=== PATIENT | female | born 1950 | race Caucasian/White ===

== ENCOUNTER 2020-09-06 10:11 | Inpatient (IN) ==
[2020-09-06] MEDS ORDERED: GLUCAGON 1 MG VIAL IM PRN ×2 (12:54)
[2020-09-06] MEDS ORDERED: DEXTROSE 50% 25 GM/50 ML VIAL IV PRN ×2 (12:54)
[2020-09-06] MEDS ORDERED: MORPHINE 4 MG/1 ML VIAL IV PRN (13:02)
[2020-09-06] MEDS ORDERED: CLORAZEPATE 3.75 MG TABLET PO PRN (13:02)
[2020-09-06] MEDS ORDERED: NITROGLYCERIN SL 0.4 MG TABLET SL PRN (13:02)
[2020-09-06 15:10] LABS: Basophils # 0.1 10*3/uL (0.0-0.2); Basophils % 0.5 % (0.0-0.8); Eosinophils # 0.5 10*3/uL (0.0-0.87); Eosinophils % 5.7 % (0.00-10.9); Hematocrit 35.2 VOL% (35.7-47.0); Hemoglobin 11.4 GM/DL (12.0-16.0); Immature Granulocytes % 0.4 %; Immature Granulocytes Absolute 0.04 #; Lymphocytes # 1.7 10*3/uL (1.4-4.0); Lymphocytes % 18.1 % (21.3-54.2); Mean Corpuscular HGB Conc 32.4 GM/DL (32-36); Mean Corpuscular Volume 86.9 FL (87-102); Mean Platelet Volume 10.4 FL (9.6-12.0); Monocytes % 7.1 % (1.7-12.7); Neutrophils % 68.2 % (38.7-73.9); Platelet Count 268 T/CUMM (130-400); Red Blood Count 4.05 MC/CUMM (3.8-5.5); Red Cell Distribution Width 13.7 % (9.3-17.3); White Blood Count 9.1 T/CUMM (4-12)
[2020-09-06 15:29] LABS: Albumin 2.7 G/DL (3.4-5.0); Bilirubin,Total 0.4 MG/DL (0.2-1.0); Calcium 8.4 MG/DL (8.5-10.1); Osmolality,Calculated 292.7 MOS/KG (273-304); Total Protein 5.9 G/DL (6.4-8.3)
[2020-09-06] MEDS: INSULIN REGULAR 100 UNIT/ML SUBCUT SCH ×2 (15:50→20:23)
[2020-09-06] MEDS ORDERED: ZALEPLON 5 MG CAPSULE PO PRN (21:17)
[2020-09-06] MEDS: PANTOPRAZOLE 40 MG VIAL IV SCH (21:28)
[2020-09-07] MEDS: INSULIN REGULAR 100 UNIT/ML SUBCUT SCH ×4 (07:51→20:50)
[2020-09-07] MEDS: PANTOPRAZOLE 40 MG VIAL IV SCH (08:02)
[2020-09-08 05:02] LABS: ABG Base Excess -2.9 MMOL/L (-2.5-2.5); ABG Oxygen Saturation 98.6 % (95-100); ABG PCO2 35.5 MM HG (35-48); ABG PH 7.389 (7.35-7.45); ABG TCO2 19.1 MMOL/L (23-27)
[2020-09-08 05:29] LABS: Basophils # 0.1 10*3/uL (0.0-0.2); Basophils % 0.7 % (0.0-0.8); Eosinophils # 0.6 10*3/uL (0.0-0.87); Eosinophils % 8.7 % (0.00-10.9); Hemoglobin 10.7 GM/DL (12.0-16.0); Immature Granulocytes % 0.4 %; Immature Granulocytes Absolute 0.03 #; Lymphocytes # 1.7 10*3/uL (1.4-4.0); Lymphocytes % 22.6 % (21.3-54.2); Mean Corpuscular HGB Conc 32.4 GM/DL (32-36); Mean Corpuscular Volume 85.5 FL (87-102); Mean Platelet Volume 10.2 FL (9.6-12.0); Monocytes % 9.5 % (1.7-12.7); Neutrophils % 58.1 % (38.7-73.9); Platelet Count 244 T/CUMM (130-400); Red Blood Count 3.86 MC/CUMM (3.8-5.5); Red Cell Distribution Width 13.6 % (9.3-17.3); White Blood Count 7.3 T/CUMM (4-12)
[2020-09-08 05:56] LABS: Albumin 2.6 G/DL (3.4-5.0); Bilirubin,Total 1.2 MG/DL (0.2-1.0); Calcium 8.5 MG/DL (8.5-10.1); Osmolality,Calculated 294.5 MOS/KG (273-304); Total Protein 5.8 G/DL (6.4-8.3)
[2020-09-08] MEDS ORDERED: NON-FORMULARY MEDICATION (Famotidine-Ca Carb-Mag Hydrox [Pepcid Complete] 10-800-165 mg Ta PO PRN (07:26)
[2020-09-08] MEDS: INSULIN REGULAR 100 UNIT/ML SUBCUT SCH ×4 (08:49→21:59)
[2020-09-08] MEDS ORDERED: INSULIN GLARGINE 100 UNIT/ML SUBCUT SCH ×2 (09:00→12:00)
[2020-09-08] MEDS: INSULIN NPH/REGULAR 70/30 100 UNIT/ML SUBCUT SCH (09:27)
[2020-09-08] MEDS: ROSUVASTATIN 10 MG TABLET PO SCH (09:30)
[2020-09-08] MEDS: ASPIRIN EC 81 MG TABLET PO SCH (09:30)
[2020-09-08] MEDS: CHLORHEXIDINE 4% SOLN 118 ML BOTTLE TOP SCH ×2 (09:31→22:00)
[2020-09-08] MEDS: CHLORHEXIDINE 0.12% ORAL RINSE 60 ML BOTTLE SWISH/SPIT SCH ×2 (09:31→22:00)
[2020-09-08] MEDS: METOPROLOL TARTRATE 25 MG TABLET PO SCH ×2 (09:33→21:59)
[2020-09-08] MEDS: PANTOPRAZOLE 40 MG VIAL IV SCH (10:13)
[2020-09-08] MEDS ORDERED: SODIUM CHLORIDE 0.9% 1,000 ML IV SCH (13:00)
[2020-09-09] MEDS ORDERED: PAPAVERINE 60 MG/2 ML VIAL ONE (04:22)
[2020-09-09] MEDS ORDERED: VANCOMYCIN 1,000 MG VIAL ONE (04:23)
[2020-09-09] MEDS ORDERED: VANCOMYCIN 500 MG VIAL ONE (04:23)
[2020-09-09] MEDS: CHLORHEXIDINE 4% SOLN 118 ML BOTTLE TOP SCH (04:30)
[2020-09-09] MEDS ORDERED: CEFUROXIME INJ 1,500 MG in SYRINGE 1 EACH IV ONE (05:00)
[2020-09-09] MEDS ORDERED: FAMOTIDINE 20 MG TABLET PO ONE (05:30)
[2020-09-09] MEDS ORDERED: AMINOCAPROIC ACID 5,000 MG/20 ML VIAL ONE (05:49)
[2020-09-09] MEDS ORDERED: VECURONIUM 10 MG VIAL IV ONE (05:50)
[2020-09-09] MEDS ORDERED: MIDAZOLAM 10 MG/2 ML VIAL ONE ×2 (05:50→08:49)
[2020-09-09] MEDS ORDERED: SUFentanil 250 MCG/5 ML AMP ONE (05:50)
[2020-09-09] MEDS ORDERED: LIDOCAINE 2% 5 ML VIAL ONE ×2 (06:08→10:13)
[2020-09-09] MEDS ORDERED: propofoL 200 MG/20 ML VIAL IV ONE (06:09)
[2020-09-09] MEDS ORDERED: ETOMIDATE 40 MG/20 ML VIAL IV ONE (06:09)
[2020-09-09] MEDS ORDERED: MINERAL OIL/PETROLATUM OPH OINT 3.5 GM TUBE ONE (06:14)
[2020-09-09 07:40] LABS: ABG Base Excess -3.8 MMOL/L (-2.5-2.5); ABG HCO3 20.8 MMOL/L (20-26); ABG Oxygen Saturation 99.1 % (95-100); ABG PH 7.379 (7.35-7.45); ABG PO2 303.9 MM HG (80-95); ABG TCO2 21.9 MMOL/L (23-27); Glucose Heart Surgery 219 MG/DL (74-106); Hemoglobin Heart Surgery 10.6 G/DL (12.0-16.0); Ionized Calcium Arterial 1.12 MMOL/L (1.21-1.46); PH Patient Temp Arterial 7.379; PO2 Patient Temp Arterial 303.9 MM HG; Patient Temperature 37 CELCIUS; Sodium Heart/CVR 134 MMOL/L (135-145)
[2020-09-09 07:49] LABS: Bilirubin,Urine Negative (Negative); Blood, Urine Small mg/dL (Negative); Glucose,Urine (UA) 50 mg/dL (Negative); Ketones,Urine Negative (Negative); Nitrite,Urine Negative (Negative); Protein,Urine 100 MG/DL; RBC,Urine <1 /HPF (0-4); Squamous Epithelial Cell,Urine Occasional /HPF (0-10); Urine Appearance Slightly Hazy (Clear); Urine Color Yellow (Yellow); Urine Urobilinogen < 2.0 EU/DL (0.2-1.0); WBC,Urine <1 /HPF (0-6)
[2020-09-09] MEDS ORDERED: SODIUM BICARBONATE 50 MEQ/50 ML VIAL IV ONE ×2 (08:31→10:15)
[2020-09-09] MEDS ORDERED: NITROPRUSSIDE 50 MG/2 ML VIAL ONE (08:31)
[2020-09-09] MEDS ORDERED: PHENYLEPHRINE DRIP 40 MG/250 ML PREMIX IV ONE (08:32)
[2020-09-09] MEDS ORDERED: CALCIUM CHLORIDE 1,000 MG/10 ML SYRINGE IV ONE (08:32)
[2020-09-09] MEDS ORDERED: POTASSIUM CHLORIDE RIDER 100 ML IV ONE (08:32)
[2020-09-09] MEDS ORDERED: ATROPINE 1 MG/10 ML SYRINGE ONE (08:33)
[2020-09-09] MEDS ORDERED: ALBUMIN 5% 12.5 GM/250 ML VIAL IV ONE (08:33)
[2020-09-09] MEDS ORDERED: LIDOCAINE 100 MG/5 ML SYRINGE ONE (08:33)
[2020-09-09] MEDS ORDERED: EPINEPHrine 1 MG/10 ML SYRINGE ONE (08:34)
[2020-09-09] MEDS ORDERED: CALCIUM CHLORIDE 1,000 MG/10 ML VIAL IV ONE ×2 (08:54→10:07)
[2020-09-09] MEDS ORDERED: SUFentanil 50 MCG/ML AMP ONE (09:01)
[2020-09-09] MEDS ORDERED: HEPARIN/NACL 0.9% 2 UNITS/ML 500 ML IV ONE (09:04)
[2020-09-09 09:08] LABS: Hematocrit Heart Surgery 21.5 PERCENT (37-47); Hemoglobin Heart Surgery 6.9 G/DL (12.0-16.0); PCO2 Patient Temp Venous 31.4 MM HG; PH Patient Temp Venous 7.459; PO2 Patient Temp Venous 37.6 MM HG; Potassium Heart/CVR 4.3 MMOL/L (3.5-5.1); VBG HCO3 23.4 MEQ/L (24-28); VBG Oxygen Saturation 83.1 %; VBG PCO2 36.3 MMHG (41-51); VBG PH 7.415; VBG PO2 46.1 MMHG (17-40)
[2020-09-09 09:37] LABS: Hematocrit Heart Surgery 21.9 PERCENT (37-47); PCO2 Patient Temp Venous 32.7 MM HG; PH Patient Temp Venous 7.452; PO2 Patient Temp Venous 33.3 MM HG; Potassium Heart/CVR 4.6 MMOL/L (3.5-5.1); VBG Base Excess -0.6 MEQ/L (0-4); VBG HCO3 23.7 MEQ/L (24-28); VBG Oxygen Saturation 76.4 %; VBG PCO2 37.8 MMHG (41-51); VBG PH 7.409
[2020-09-09] MEDS ORDERED: MAGNESIUM SULFATE 5 GM/10 ML VIAL IV ONE (10:13)
[2020-09-09] MEDS ORDERED: ALBUMIN 25% 25 GM/100 ML VIAL IV ONE (10:13)
[2020-09-09] MEDS ORDERED: HEPARIN 10,000 UNIT/10 ML VIAL ONE (10:14)
[2020-09-09] MEDS ORDERED: MANNITOL 12.5 GM/50 ML VIAL IV ONE (10:14)
[2020-09-09] MEDS ORDERED: DEXTROSE 5% KCL 20 MEQ 20 MEQ/1,000 ML BAG IV ONE (10:14)
[2020-09-09] MEDS ORDERED: methylPREDNISolone SOD SUC 1,000 MG/8 ML VIAL ONE (10:14)
[2020-09-09] MEDS ORDERED: FUROSEMIDE 20 MG/2 ML VIAL ONE (10:14)
[2020-09-09] MEDS ORDERED: MANNITOL 100 GM/500 ML BAG IV ONE (10:14)
[2020-09-09] MEDS ORDERED: PROTAMINE SULFATE 250 MG/25 ML VIAL IV ONE (10:14)
[2020-09-09] MEDS ORDERED: PROTAMINE SULFATE 50 MG/5 ML VIAL IV ONE (10:15)
[2020-09-09 10:17] LABS: ABG Base Excess -3.3 MMOL/L (-2.5-2.5); ABG HCO3 21.7 MMOL/L (20-26); ABG Oxygen Saturation 99.9 % (95-100); ABG PCO2 40.2 MM HG (35-48); ABG PH 7.348 (7.35-7.45); ABG TCO2 20.7 MMOL/L (23-27); Glucose Heart Surgery 355 MG/DL (74-106); Hematocrit Heart Surgery 25.4 PERCENT (37-47); Hemoglobin Heart Surgery 8.2 G/DL (12.0-16.0); Ionized Calcium Arterial 1.52 MMOL/L (1.21-1.46); PCO2 Patient Temp Arterial 40.2 MMHG; PH Patient Temp Arterial 7.348; Patient Temperature 37 CELCIUS; Potassium Heart/CVR 4.2 MMOL/L (3.5-5.1); Sodium Heart/CVR 134 MMOL/L (135-145)
[2020-09-09] MEDS ORDERED: PHENYLEPHRINE DRIP 40 MG/250 ML PREMIX IV PRN (10:24)
[2020-09-09] MEDS ORDERED: CHLORHEXIDINE 4% SOLN 118 ML BOTTLE TOP PRN (10:24)
[2020-09-09] MEDS ORDERED: MIDAZOLAM 10 MG/2 ML VIAL IV PRN (10:24)
[2020-09-09] MEDS ORDERED: MAGNESIUM SULF RIDER 2 GM in PREMIX 1 EACH IV PRN (10:24)
[2020-09-09] MEDS ORDERED: INSULIN REGULAR 100 UNIT/ML IV PRN (10:24)
[2020-09-09] MEDS ORDERED: MORPHINE 10 MG/1 ML VIAL IV PRN (10:24)
[2020-09-09] MEDS ORDERED: ALBUMIN 5% 12.5 GM in PREMIX 1 EACH IV PRN (10:24)
[2020-09-09] MEDS ORDERED: LACTATED RINGERS 250 ML IV PRN (10:24)
[2020-09-09] MEDS ORDERED: MAGNESIUM SULF RIDER 4 GM in PREMIX 1 EACH IV PRN (10:24)
[2020-09-09] MEDS ORDERED: POTASSIUM CHLORIDE RIDER 10 MEQ in PREMIX 1 EACH IV PRN (10:24)
[2020-09-09] MEDS ORDERED: DEXTROSE 50% 25 GM/50 ML VIAL IV PRN ×2 (10:24)
[2020-09-09] MEDS ORDERED: ONDANSETRON 4 MG/2 ML VIAL IV PRN (10:24)
[2020-09-09] MEDS ORDERED: INSULIN REGULAR 100 UNIT/ML IV ONE (10:24)
[2020-09-09] MEDS ORDERED: NITROPRUSSIDE 100 MG in DEXTROSE 5% 250 ML IV PRN (10:24)
[2020-09-09] MEDS ORDERED: ACETAMINOPHEN 650 MG SUPP RECTAL PRN (10:24)
[2020-09-09] MEDS ORDERED: MIDAZOLAM 2 MG/2 ML VIAL IV PRN (10:24)
[2020-09-09] MEDS ORDERED: VECURONIUM 10 MG VIAL IV PRN ×2 (10:24)
[2020-09-09] MEDS ORDERED: CALCIUM CHLORIDE 1,000 MG/10 ML SYRINGE IV PRN (10:24)
[2020-09-09] MEDS ORDERED: SEVOFLURANE 1 UNIT/15 MINUTE INH ONE (10:35)
[2020-09-09] MEDS ORDERED: SODIUM CHLORIDE 0.9% 250 ML IV ONE (10:35)
[2020-09-09] MEDS ORDERED: LACTATED RINGERS 3,000 ML IV ONE (10:35)
[2020-09-09] MEDS ORDERED: SODIUM CHLORIDE 0.9% 1,000 ML IV ONE (10:35)
[2020-09-09] MEDS: SODIUM CHLORIDE 0.45% 1,000 ML IV SCH ×2 (11:00→11:36)
[2020-09-09 11:16] LABS: ABG Base Excess -1.7 MMOL/L (-2.5-2.5); ABG Oxygen Saturation 99.4 % (95-100); ABG PH 7.397 (7.35-7.45); ABG TCO2 20.9 MMOL/L (23-27); Glucose Heart Surgery 340 MG/DL (74-106); Hematocrit Heart Surgery 28.4 PERCENT (37-47); Hemoglobin Heart Surgery 9.2 G/DL (12.0-16.0); Potassium Heart/CVR 4.3 MMOL/L (3.5-5.1)
[2020-09-09 11:20] LABS: Basophils % 0.3 % (0.0-0.8); Eosinophils # 0.2 10*3/uL (0.0-0.87); Eosinophils % 2.3 % (0.00-10.9); Hematocrit 26.8 VOL% (35.7-47.0); Hemoglobin 8.9 GM/DL (12.0-16.0); Immature Granulocytes % 0.9 %; Immature Granulocytes Absolute 0.08 #; Lymphocytes # 0.8 10*3/uL (1.4-4.0); Lymphocytes % 8.3 % (21.3-54.2); Mean Corpuscular HGB Conc 33.2 GM/DL (32-36); Mean Corpuscular Volume 83.8 FL (87-102); Mean Platelet Volume 10.1 FL (9.6-12.0); Monocytes % 4.5 % (1.7-12.7); Neutrophils % 83.7 % (38.7-73.9); Platelet Count 193 T/CUMM (130-400); Red Cell Distribution Width 13.5 % (9.3-17.3); White Blood Count 9.2 T/CUMM (4-12)
[2020-09-09 11:34] LABS: INR 1.1; PT Patient Result 11.8 SECS (9.8-11.9); Partial Thromboplastin Time 31.9 SECS (23.9-33.8)
[2020-09-09 11:44] LABS: CKMB % 2.5 %
[2020-09-09 11:47] LABS: Troponin I 2.74 NG/ML (0.00-0.045)
[2020-09-09 11:49] LABS: Albumin 2.5 G/DL (3.4-5.0); Bilirubin,Total 0.6 MG/DL (0.2-1.0); Calcium 8.6 MG/DL (8.5-10.1); Osmolality,Calculated 293.7 MOS/KG (273-304); Total Protein 4.7 G/DL (6.4-8.3)
[2020-09-09] MEDS: INSULIN REGULAR DRIP 100 ML IV SCH ×2 (12:00→17:52)
[2020-09-09 13:03] LABS: ABG Base Excess -2.2 MMOL/L (-2.5-2.5); ABG HCO3 22.3 MMOL/L (20-26); ABG Oxygen Saturation 97.5 % (95-100); ABG PCO2 37.4 MM HG (35-48); ABG PH 7.394 (7.35-7.45); ABG PO2 118.6 MM HG (80-95); ABG TCO2 23.5 MMOL/L (23-27); Glucose Heart Surgery 265 MG/DL (74-106); Hemoglobin Heart Surgery 9.7 G/DL (12.0-16.0)
[2020-09-09] MEDS: POTASSIUM CHLORIDE RIDER 20 MEQ in PREMIX 1 EACH IV PRN ×2 (14:06→18:12)
[2020-09-09 14:16] LABS: ABG Base Excess -1.6 MMOL/L (-2.5-2.5); ABG PCO2 37.9 MM HG (35-48); ABG PH 7.391 (7.35-7.45); ABG TCO2 21.3 MMOL/L (23-27); Glucose Heart Surgery 285 MG/DL (74-106); Hematocrit Heart Surgery 26.7 PERCENT (37-47); Hemoglobin Heart Surgery 8.6 G/DL (12.0-16.0); Potassium Heart/CVR 4.1 MMOL/L (3.5-5.1)
[2020-09-09] MEDS ORDERED: LACTATED RINGERS 1,000 ML IV PRN (17:38)
[2020-09-09 17:45] LABS: ABG Base Excess -3.7 MMOL/L (-2.5-2.5); ABG HCO3 21.3 MMOL/L (20-26); ABG Oxygen Saturation 96.1 % (95-100); ABG PCO2 42.1 MM HG (35-48); ABG PH 7.328 (7.35-7.45); ABG PO2 83.6 MM HG (80-95); ABG TCO2 20.1 MMOL/L (23-27); Glucose Heart Surgery 204 MG/DL (74-106); Hematocrit Heart Surgery 32.8 PERCENT (37-47); Hemoglobin Heart Surgery 10.6 G/DL (12.0-16.0)
[2020-09-09 17:58] LABS: CKMB % 2.6 %
[2020-09-09 18:00] LABS: Troponin I 2.42 NG/ML (0.00-0.045)
[2020-09-09] MEDS ORDERED: FUROSEMIDE 40 MG/4 ML VIAL IV ONE (18:25)
[2020-09-09] MEDS: CEFUROXIME INJ 1,500 MG in SYRINGE 1 EACH IV SCH (18:32)
[2020-09-09 19:12] LABS: ABG Base Excess -3.4 MMOL/L (-2.5-2.5); ABG HCO3 21.6 MMOL/L (20-26); ABG Oxygen Saturation 96.3 % (95-100); ABG PCO2 39.6 MM HG (35-48); ABG PH 7.351 (7.35-7.45); ABG PO2 81.5 MM HG (80-95); Glucose Heart Surgery 164 MG/DL (74-106); Hematocrit Heart Surgery 31.4 PERCENT (37-47); Hemoglobin Heart Surgery 10.1 G/DL (12.0-16.0); Potassium Heart/CVR 4.3 MMOL/L (3.5-5.1)
[2020-09-09 20:43] LABS: ABG Base Excess -4.2 MMOL/L (-2.5-2.5); ABG HCO3 20.9 MMOL/L (20-26); ABG Oxygen Saturation 98.2 % (95-100); ABG PCO2 39.8 MM HG (35-48); ABG PH 7.337 (7.35-7.45); ABG TCO2 19.4 MMOL/L (23-27); Glucose Heart Surgery 139 MG/DL (74-106); Hematocrit Heart Surgery 31.9 PERCENT (37-47); Hemoglobin Heart Surgery 10.3 G/DL (12.0-16.0); Potassium Heart/CVR 4.2 MMOL/L (3.5-5.1)
[2020-09-09] MEDS: MORPHINE 4 MG/1 ML VIAL IV PRN (20:45)
[2020-09-09] MEDS: CHLORHEXIDINE 0.12% ORAL RINSE 60 ML BOTTLE SWISH/SPIT SCH (22:01)
[2020-09-10] MEDS: MORPHINE 4 MG/1 ML VIAL IV PRN ×2 (01:01→04:08)
[2020-09-10 03:18] LABS: ABG Base Excess -3.4 MMOL/L (-2.5-2.5); ABG HCO3 21.5 MMOL/L (20-26); ABG Oxygen Saturation 95.8 % (95-100); ABG PCO2 40.3 MM HG (35-48); ABG PH 7.345 (7.35-7.45); ABG PO2 81.4 MM HG (80-95); ABG TCO2 20.2 MMOL/L (23-27); Glucose Heart Surgery 177 MG/DL (74-106); Hematocrit Heart Surgery 30.5 PERCENT (37-47); Hemoglobin Heart Surgery 9.9 G/DL (12.0-16.0); Potassium Heart/CVR 4.7 MMOL/L (3.5-5.1)
[2020-09-10 03:20] LABS: Basophils % 0.1 % (0.0-0.8); Hematocrit 29.7 VOL% (35.7-47.0); Hemoglobin 9.7 GM/DL (12.0-16.0); Immature Granulocytes % 0.7 %; Lymphocytes # 0.6 10*3/uL (1.4-4.0); Lymphocytes % 3.8 % (21.3-54.2); Mean Corpuscular HGB Conc 32.7 GM/DL (32-36); Mean Corpuscular Volume 84.9 FL (87-102); Mean Platelet Volume 10.4 FL (9.6-12.0); Monocytes % 2.8 % (1.7-12.7); Neutrophils % 92.6 % (38.7-73.9); Platelet Count 197 T/CUMM (130-400); Red Cell Distribution Width 13.8 % (9.3-17.3); White Blood Count 15.1 T/CUMM (4-12)
[2020-09-10 03:39] LABS: CKMB % 3.7 %
[2020-09-10 03:41] LABS: Alanine Aminotransferase 16 U/L (13-56); Albumin 2.6 G/DL (3.4-5.0); Alkaline Phosphatase 62 U/L (45-117); Aspartate Amino Transferase 28 U/L (0-37); Bilirubin,Total < 0.39 MG/DL (0.2-1.0); Blood Urea Nitrogen 39 MG/DL (7-18); Calcium 8.2 MG/DL (8.5-10.1); Estimated Glom Filtration Rate 45 ML/MIN; Glucose 159 MG/DL (74-106); Osmolality,Calculated 290.4 MOS/KG (273-304); Total Protein 5.3 G/DL (6.4-8.3); Troponin I 3.38 NG/ML (0.00-0.045)
[2020-09-10 03:49] LABS: Hypochromasia Slight; Lymphocytes 4 % (20-55); Microcytosis 1+; Platelet Estimate Normal; Segmented Neutrophils 94 % (50-85); Total Cells Counted 100
[2020-09-10 03:50] LABS: Ovalocytes Slight
[2020-09-10 03:51] LABS: Polychromasia Slight
[2020-09-10] MEDS ORDERED: FUROSEMIDE 40 MG/4 ML VIAL IV ONE (05:30)
[2020-09-10] MEDS: CEFUROXIME INJ 1,500 MG in SYRINGE 1 EACH IV SCH ×2 (06:02→17:23)
[2020-09-10] MEDS: ROSUVASTATIN 10 MG TABLET PO SCH (07:29)
[2020-09-10] MEDS: INSULIN REGULAR 100 UNIT/ML SUBCUT SCH ×3 (07:29→12:22)
[2020-09-10] MEDS: INSULIN NPH/REGULAR 70/30 100 UNIT/ML SUBCUT SCH (07:29)
[2020-09-10] MEDS: ASPIRIN EC 81 MG TABLET PO SCH (07:29)
[2020-09-10] MEDS: PANTOPRAZOLE 40 MG VIAL IV SCH (07:30)
[2020-09-10] MEDS: METOPROLOL TARTRATE 25 MG TABLET PO SCH (07:30)
[2020-09-10] MEDS: CHLORHEXIDINE 0.12% ORAL RINSE 60 ML BOTTLE SWISH/SPIT SCH ×3 (07:30→22:07)
[2020-09-10 10:36] LABS: CKMB % 3.9 %
[2020-09-10 10:37] LABS: Troponin I 3.37 NG/ML (0.00-0.045)
[2020-09-10] MEDS: INSULIN REGULAR DRIP 100 ML IV SCH (12:11)
[2020-09-10] MEDS ORDERED: ONDANSETRON 4 MG/2 ML VIAL IV PRN (14:07)
[2020-09-10] MEDS ORDERED: GLUCAGON 1 MG VIAL IM PRN ×3 (14:07→14:17)
[2020-09-10] MEDS ORDERED: ALUMINUM/MAGNES/SIMETH MAX STR 30 ML UDCUP PO PRN (14:07)
[2020-09-10] MEDS ORDERED: ACETAMINOPHEN 325 MG TABLET PO PRN (14:07)
[2020-09-10] MEDS ORDERED: MAGNESIUM SULF RIDER 4 GM in PREMIX 1 EACH IV PRN (14:07)
[2020-09-10] MEDS ORDERED: ZALEPLON 5 MG CAPSULE PO PRN (14:07)
[2020-09-10] MEDS ORDERED: POTASSIUM CHLORIDE 20 MEQ TABLET PO PRN (14:07)
[2020-09-10] MEDS ORDERED: SODIUM CHLOR 0.45% KCL 20 MEQ 20 MEQ/1,000 ML BAG IV SCH (14:07)
[2020-09-10] MEDS ORDERED: DEXTROSE 50% 25 GM/50 ML VIAL IV PRN ×3 (14:07→14:17)
[2020-09-10] MEDS ORDERED: MAGNESIUM HYDROXIDE SUSP 30 ML UDCUP PO PRN (14:07)
[2020-09-10] MEDS ORDERED: MAGNESIUM SULF RIDER 2 GM in PREMIX 1 EACH IV PRN (14:07)
[2020-09-10] MEDS: SODIUM CHLORIDE 0.45% 1,000 ML IV SCH ×2 (14:13)
[2020-09-10] MEDS: INSULIN LISPRO 100 UNIT/ML SUBCUT SCH ×2 (17:11→22:07)
[2020-09-10] MEDS: oxyCODONE/ACETAMINOPHEN 5-325 MG TABLET PO PRN (20:00)
[2020-09-11] MEDS ORDERED: FUROSEMIDE 40 MG/4 ML VIAL IV ONE (06:00)
[2020-09-11 06:13] LABS: Basophils % 0.2 % (0.0-0.8); Eosinophils # 0.1 10*3/uL (0.0-0.87); Eosinophils % 0.3 % (0.00-10.9); Hemoglobin 9.8 GM/DL (12.0-16.0); Immature Granulocytes % 0.9 %; Immature Granulocytes Absolute 0.14 #; Lymphocytes # 1.2 10*3/uL (1.4-4.0); Lymphocytes % 7.9 % (21.3-54.2); Mean Corpuscular HGB Conc 32.7 GM/DL (32-36); Mean Corpuscular Volume 87.2 FL (87-102); Mean Platelet Volume 11.5 FL (9.6-12.0); Monocytes % 8.8 % (1.7-12.7); Neutrophils % 81.9 % (38.7-73.9); Platelet Count 252 T/CUMM (130-400); Red Blood Count 3.44 MC/CUMM (3.8-5.5); Red Cell Distribution Width 14.1 % (9.3-17.3); White Blood Count 14.8 T/CUMM (4-12)
[2020-09-11 06:36] LABS: Alanine Aminotransferase 16 U/L (13-56); Albumin 2.5 G/DL (3.4-5.0); Alkaline Phosphatase 73 U/L (45-117); Aspartate Amino Transferase 16 U/L (0-37); Bilirubin,Direct < 0.100 MG/DL (0.0-0.20); Blood Urea Nitrogen 51 MG/DL (7-18); Calcium 8.2 MG/DL (8.5-10.1); Estimated Glom Filtration Rate 40 ML/MIN; Glucose 263 MG/DL (74-106); Osmolality,Calculated 292.1 MOS/KG (273-304); Total Protein 5.7 G/DL (6.4-8.3)
[2020-09-11 06:40] LABS: Albumin 2.6 G/DL (3.4-5.0); Bilirubin,Direct 0.1 MG/DL (0.0-0.20); Bilirubin,Indirect 1.4 MG/DL (0.0-1.0); Bilirubin,Total 1.5 MG/DL (0.2-1.0); CKMB % 2.4 %; Total Protein 5.7 G/DL (6.4-8.3)
[2020-09-11 06:41] LABS: Troponin I 2.9 NG/ML (0.00-0.045)
[2020-09-11] MEDS: FERROUS SULFATE 325 MG TABLET PO SCH (08:58)
[2020-09-11] MEDS: PANTOPRAZOLE 40 MG TABLET PO SCH (08:58)
[2020-09-11] MEDS: ASPIRIN EC 325 MG TABLET PO SCH (08:58)
[2020-09-11] MEDS: DOCUSATE SODIUM 100 MG CAPSULE PO SCH (08:58)
[2020-09-11] MEDS: oxyCODONE/ACETAMINOPHEN 5-325 MG TABLET PO PRN (08:58)
[2020-09-11] MEDS: INSULIN LISPRO 100 UNIT/ML SUBCUT SCH ×4 (08:59→21:14)
[2020-09-11] MEDS ORDERED: INSULIN GLARGINE 100 UNIT/ML SUBCUT SCH (09:00)
[2020-09-11] MEDS: CHLORHEXIDINE 0.12% ORAL RINSE 60 ML BOTTLE SWISH/SPIT SCH ×2 (09:00→23:15)
[2020-09-11] MEDS: INSULIN NPH/REGULAR 70/30 100 UNIT/ML SUBCUT SCH (17:32)
[2020-09-12 06:01] LABS: Basophils % 0.2 % (0.0-0.8); Eosinophils # 0.2 10*3/uL (0.0-0.87); Eosinophils % 1.6 % (0.00-10.9); Hematocrit 28.7 VOL% (35.7-47.0); Hemoglobin 9.2 GM/DL (12.0-16.0); Immature Granulocytes % 0.8 %; Lymphocytes # 1.4 10*3/uL (1.4-4.0); Lymphocytes % 11.2 % (21.3-54.2); Mean Corpuscular HGB Conc 32.1 GM/DL (32-36); Mean Platelet Volume 11.1 FL (9.6-12.0); Monocytes % 10.5 % (1.7-12.7); Neutrophils % 75.7 % (38.7-73.9); Platelet Count 259 T/CUMM (130-400); White Blood Count 12.4 T/CUMM (4-12)
[2020-09-12 06:32] LABS: Albumin 2.4 G/DL (3.4-5.0); Bilirubin,Direct 0.11 MG/DL (0.0-0.20); Bilirubin,Total 0.6 MG/DL (0.2-1.0); Osmolality,Calculated 291.1 MOS/KG (273-304); Total Protein 5.7 G/DL (6.4-8.3)
[2020-09-12 06:38] LABS: Alanine Aminotransferase 13 U/L (13-56); Albumin 2.4 G/DL (3.4-5.0); Alkaline Phosphatase 78 U/L (45-117); Aspartate Amino Transferase 12 U/L (0-37); Bilirubin,Indirect 1.1 MG/DL (0.0-1.0); Total Protein 5.1 G/DL (6.4-8.3)
[2020-09-12] MEDS ORDERED: METOPROLOL SUCCINATE XL 25 MG TABLET PO SCH (09:00)
[2020-09-12] MEDS: FERROUS SULFATE 325 MG TABLET PO SCH (09:36)
[2020-09-12] MEDS: ASPIRIN EC 325 MG TABLET PO SCH (09:36)
[2020-09-12] MEDS: INSULIN NPH/REGULAR 70/30 100 UNIT/ML SUBCUT SCH ×2 (09:36→16:48)
[2020-09-12] MEDS: DOCUSATE SODIUM 100 MG CAPSULE PO SCH (09:36)
[2020-09-12] MEDS: PANTOPRAZOLE 40 MG TABLET PO SCH (09:36)
[2020-09-12] MEDS: INSULIN LISPRO 100 UNIT/ML SUBCUT SCH ×4 (09:37→21:17)
[2020-09-12] MEDS: CHLORHEXIDINE 0.12% ORAL RINSE 60 ML BOTTLE SWISH/SPIT SCH ×2 (09:39→21:19)
[2020-09-12] MEDS: INSULIN GLARGINE 100 UNIT/ML SUBCUT SCH (12:55)
[2020-09-12] MEDS: ROSUVASTATIN 20 MG TABLET PO SCH (21:16)
[2020-09-13] MEDS ORDERED: DILTIAZEM 50 MG/10 ML VIAL IV ONE (01:02)
[2020-09-13] MEDS: dilTIAZem Drip 125 MG/125 ML PREMIX IV SCH ×2 (01:37→12:35)
[2020-09-13] MEDS ORDERED: AMIODARONE INJ 150 MG in DEXTROSE 5% 100 ML IV ONE (06:00)
[2020-09-13 06:08] LABS: Basophils % 0.2 % (0.0-0.8); Eosinophils # 0.2 10*3/uL (0.0-0.87); Hematocrit 28.4 VOL% (35.7-47.0); Immature Granulocytes % 0.6 %; Immature Granulocytes Absolute 0.07 #; Lymphocytes # 1.1 10*3/uL (1.4-4.0); Lymphocytes % 10.2 % (21.3-54.2); Mean Corpuscular HGB Conc 31.7 GM/DL (32-36); Mean Corpuscular Volume 87.9 FL (87-102); Mean Platelet Volume 10.5 FL (9.6-12.0); Monocytes % 9.5 % (1.7-12.7); Neutrophils % 77.5 % (38.7-73.9); Platelet Count 275 T/CUMM (130-400); Red Blood Count 3.23 MC/CUMM (3.8-5.5); Red Cell Distribution Width 13.8 % (9.3-17.3); White Blood Count 10.8 T/CUMM (4-12)
[2020-09-13] MEDS ORDERED: AMIODARONE INJ 450 MG in DEXTROSE 5% 241 ML IV SCH (06:30)
[2020-09-13 06:52] LABS: Calcium 8.1 MG/DL (8.5-10.1)
[2020-09-13] MEDS: POLYETHYLENE GLYCOL POWDER 17 GM PACK PO SCH (08:59)
[2020-09-13] MEDS: ASPIRIN EC 325 MG TABLET PO SCH (08:59)
[2020-09-13] MEDS: FERROUS SULFATE 325 MG TABLET PO SCH (09:00)
[2020-09-13] MEDS: PANTOPRAZOLE 40 MG TABLET PO SCH (09:00)
[2020-09-13] MEDS: DOCUSATE SODIUM 100 MG CAPSULE PO SCH (09:00)
[2020-09-13] MEDS: METOPROLOL SUCCINATE XL 50 MG TABLET PO SCH (09:00)
[2020-09-13] MEDS: CHLORHEXIDINE 0.12% ORAL RINSE 60 ML BOTTLE SWISH/SPIT SCH ×2 (09:01→21:22)
[2020-09-13] MEDS: INSULIN NPH/REGULAR 70/30 100 UNIT/ML SUBCUT SCH ×2 (09:01→17:27)
[2020-09-13] MEDS: INSULIN LISPRO 100 UNIT/ML SUBCUT SCH ×4 (09:06→20:33)
[2020-09-13] MEDS: INSULIN GLARGINE 100 UNIT/ML SUBCUT SCH (12:22)
[2020-09-13] MEDS: AMIODARONE INJ 450 MG in DEXTROSE 5% 241 ML IV SCH (14:04)
[2020-09-13] MEDS: ROSUVASTATIN 20 MG TABLET PO SCH (21:22)
[2020-09-13] MEDS: APIXABAN 5 MG TABLET PO SCH (21:22)
[2020-09-14] MEDS: AMIODARONE INJ 450 MG in DEXTROSE 5% 241 ML IV SCH (05:16)
[2020-09-14 06:27] LABS: Basophils % 0.4 % (0.0-0.8); Eosinophils # 0.6 10*3/uL (0.0-0.87); Hematocrit 28.6 VOL% (35.7-47.0); Hemoglobin 9.3 GM/DL (12.0-16.0); Immature Granulocytes Absolute 0.11 #; Lymphocytes # 1.9 10*3/uL (1.4-4.0); Lymphocytes % 17.2 % (21.3-54.2); Mean Corpuscular HGB Conc 32.5 GM/DL (32-36); Mean Corpuscular Volume 87.7 FL (87-102); Mean Platelet Volume 10.7 FL (9.6-12.0); Monocytes % 11.1 % (1.7-12.7); Neutrophils % 65.3 % (38.7-73.9); Platelet Count 378 T/CUMM (130-400); Red Blood Count 3.26 MC/CUMM (3.8-5.5); Red Cell Distribution Width 13.9 % (9.3-17.3); White Blood Count 11.2 T/CUMM (4-12)
[2020-09-14 06:52] LABS: Alanine Aminotransferase 17 U/L (13-56); Albumin 2.3 G/DL (3.4-5.0); Alkaline Phosphatase 89 U/L (45-117); Aspartate Amino Transferase 17 U/L (0-37); Bilirubin,Indirect 0.4 MG/DL (0.0-1.0); Blood Urea Nitrogen 59 MG/DL (7-18); Calcium 8.1 MG/DL (8.5-10.1); Estimated Glom Filtration Rate 54 ML/MIN; Glucose 77 MG/DL (74-106); Osmolality,Calculated 285.1 MOS/KG (273-304); Total Protein 5.8 G/DL (6.4-8.3)
[2020-09-14 06:53] LABS: Troponin I 0.615 NG/ML (0.00-0.045)
[2020-09-14] MEDS: INSULIN LISPRO 100 UNIT/ML SUBCUT SCH ×4 (07:51→21:20)
[2020-09-14] MEDS: FERROUS SULFATE 325 MG TABLET PO SCH (09:14)
[2020-09-14] MEDS: ASPIRIN EC 325 MG TABLET PO SCH (09:14)
[2020-09-14] MEDS: DOCUSATE SODIUM 100 MG CAPSULE PO SCH (09:15)
[2020-09-14] MEDS: PANTOPRAZOLE 40 MG TABLET PO SCH (09:15)
[2020-09-14] MEDS: METOPROLOL SUCCINATE XL 50 MG TABLET PO SCH (09:15)
[2020-09-14] MEDS: INSULIN NPH/REGULAR 70/30 100 UNIT/ML SUBCUT SCH ×2 (09:15→16:00)
[2020-09-14] MEDS: POLYETHYLENE GLYCOL POWDER 17 GM PACK PO SCH (09:15)
[2020-09-14] MEDS: APIXABAN 5 MG TABLET PO SCH ×2 (09:16→21:20)
[2020-09-14] MEDS: CHLORHEXIDINE 0.12% ORAL RINSE 60 ML BOTTLE SWISH/SPIT SCH ×2 (09:16→21:19)
[2020-09-14] MEDS: AMIODARONE 200 MG TABLET PO SCH ×2 (09:47→21:20)
[2020-09-14] MEDS: DILTIAZEM CD 120 MG CAPSULE PO SCH (09:47)
[2020-09-14] MEDS: INSULIN GLARGINE 100 UNIT/ML SUBCUT SCH (12:25)
[2020-09-14] MEDS: ROSUVASTATIN 20 MG TABLET PO SCH (21:20)
[2020-09-15 05:55] LABS: Basophils % 0.3 % (0.0-0.8); Eosinophils # 0.3 10*3/uL (0.0-0.87); Hematocrit 28.8 VOL% (35.7-47.0); Hemoglobin 9.3 GM/DL (12.0-16.0); Immature Granulocytes Absolute 0.11 #; Lymphocytes # 1.4 10*3/uL (1.4-4.0); Lymphocytes % 12.1 % (21.3-54.2); Mean Corpuscular HGB Conc 32.3 GM/DL (32-36); Mean Corpuscular Volume 86.7 FL (87-102); Mean Platelet Volume 10.1 FL (9.6-12.0); Monocytes % 10.7 % (1.7-12.7); Neutrophils % 72.9 % (38.7-73.9); Platelet Count 427 T/CUMM (130-400); Red Blood Count 3.32 MC/CUMM (3.8-5.5); Red Cell Distribution Width 13.8 % (9.3-17.3); White Blood Count 11.5 T/CUMM (4-12)
[2020-09-15 06:22] LABS: Alanine Aminotransferase 19 U/L (13-56); Albumin 2.3 G/DL (3.4-5.0); Alkaline Phosphatase 101 U/L (45-117); Aspartate Amino Transferase 15 U/L (0-37); Bilirubin,Indirect 0.5 MG/DL (0.0-1.0); Blood Urea Nitrogen 55 MG/DL (7-18); Calcium 8.4 MG/DL (8.5-10.1); Estimated Glom Filtration Rate 54 ML/MIN; Glucose 63 MG/DL (74-106); Osmolality,Calculated 285.8 MOS/KG (273-304); Total Protein 5.9 G/DL (6.4-8.3)
[2020-09-15 06:25] LABS: Troponin I 0.336 NG/ML (0.00-0.045)
[2020-09-15] MEDS: INSULIN LISPRO 100 UNIT/ML SUBCUT SCH ×4 (07:59→21:59)
[2020-09-15] MEDS: AMIODARONE 200 MG TABLET PO SCH ×2 (08:01→21:59)
[2020-09-15] MEDS: APIXABAN 5 MG TABLET PO SCH ×2 (08:01→21:59)
[2020-09-15] MEDS: ASPIRIN EC 325 MG TABLET PO SCH (08:01)
[2020-09-15] MEDS: DOCUSATE SODIUM 100 MG CAPSULE PO SCH (08:01)
[2020-09-15] MEDS: DILTIAZEM CD 120 MG CAPSULE PO SCH (08:01)
[2020-09-15] MEDS: FERROUS SULFATE 325 MG TABLET PO SCH (08:02)
[2020-09-15] MEDS: POLYETHYLENE GLYCOL POWDER 17 GM PACK PO SCH (08:02)
[2020-09-15] MEDS: PANTOPRAZOLE 40 MG TABLET PO SCH (08:02)
[2020-09-15] MEDS: CHLORHEXIDINE 0.12% ORAL RINSE 60 ML BOTTLE SWISH/SPIT SCH ×2 (08:02→22:00)
[2020-09-15] MEDS: METOPROLOL SUCCINATE XL 50 MG TABLET PO SCH (08:02)
[2020-09-15] MEDS: INSULIN NPH/REGULAR 70/30 100 UNIT/ML SUBCUT SCH ×2 (08:15→16:39)
[2020-09-15] MEDS: ASCORBIC ACID 500 MG TABLET PO SCH ×2 (09:38→21:59)
[2020-09-15] MEDS: INSULIN GLARGINE 100 UNIT/ML SUBCUT SCH (12:12)
[2020-09-15] MEDS: ROSUVASTATIN 20 MG TABLET PO SCH (21:59)
[2020-09-16 06:20] LABS: Basophils # 0.1 10*3/uL (0.0-0.2); Basophils % 0.5 % (0.0-0.8); Eosinophils # 0.4 10*3/uL (0.0-0.87); Eosinophils % 3.6 % (0.00-10.9); Hematocrit 29.8 VOL% (35.7-47.0); Hemoglobin 9.4 GM/DL (12.0-16.0); Immature Granulocytes Absolute 0.12 #; Lymphocytes # 1.9 10*3/uL (1.4-4.0); Lymphocytes % 15.6 % (21.3-54.2); Mean Corpuscular HGB Conc 31.5 GM/DL (32-36); Mean Corpuscular Volume 88.7 FL (87-102); Mean Platelet Volume 10.1 FL (9.6-12.0); Monocytes % 9.2 % (1.7-12.7); Neutrophils % 70.1 % (38.7-73.9); Platelet Count 469 T/CUMM (130-400); Red Blood Count 3.36 MC/CUMM (3.8-5.5); Red Cell Distribution Width 13.8 % (9.3-17.3)
[2020-09-16 06:41] LABS: Calcium 8.4 MG/DL (8.5-10.1); Osmolality,Calculated 287.7 MOS/KG (273-304)
[2020-09-16] MEDS: carvediloL 6.25 MG TABLET PO SCH ×2 (09:03→21:14)
[2020-09-16] MEDS: DILTIAZEM CD 120 MG CAPSULE PO SCH (09:04)
[2020-09-16] MEDS: ASPIRIN EC 325 MG TABLET PO SCH (09:04)
[2020-09-16] MEDS: FERROUS SULFATE 325 MG TABLET PO SCH (09:04)
[2020-09-16] MEDS: ASCORBIC ACID 500 MG TABLET PO SCH ×2 (09:04→21:14)
[2020-09-16] MEDS: PANTOPRAZOLE 40 MG TABLET PO SCH (09:05)
[2020-09-16] MEDS: CHLORHEXIDINE 0.12% ORAL RINSE 60 ML BOTTLE SWISH/SPIT SCH ×2 (09:05→21:14)
[2020-09-16] MEDS: AMIODARONE 200 MG TABLET PO SCH (09:05)
[2020-09-16] MEDS: APIXABAN 5 MG TABLET PO SCH ×2 (09:05→21:14)
[2020-09-16] MEDS: DOCUSATE SODIUM 100 MG CAPSULE PO SCH (09:05)
[2020-09-16] MEDS: POLYETHYLENE GLYCOL POWDER 17 GM PACK PO SCH (09:05)
[2020-09-16] MEDS ORDERED: AMIODARONE INJ 150 MG in DEXTROSE 5% 100 ML IV ONE (09:34)
[2020-09-16] MEDS ORDERED: FUROSEMIDE 40 MG/4 ML VIAL IV ONE (09:35)
[2020-09-16] MEDS ORDERED: AMIODARONE INJ 450 MG in DEXTROSE 5% 241 ML IV SCH (10:00)
[2020-09-16] MEDS: INSULIN NPH/REGULAR 70/30 100 UNIT/ML SUBCUT SCH ×2 (10:25→16:10)
[2020-09-16] MEDS: INSULIN LISPRO 100 UNIT/ML SUBCUT SCH ×4 (10:25→22:34)
[2020-09-16] MEDS: INSULIN GLARGINE 100 UNIT/ML SUBCUT SCH (12:40)
[2020-09-16] MEDS: AMIODARONE INJ 450 MG in DEXTROSE 5% 241 ML IV SCH (17:31)
[2020-09-16] MEDS: ROSUVASTATIN 20 MG TABLET PO SCH (21:14)
[2020-09-17 05:58] LABS: Basophils # 0.1 10*3/uL (0.0-0.2); Basophils % 0.4 % (0.0-0.8); Eosinophils # 0.8 10*3/uL (0.0-0.87); Eosinophils % 6.4 % (0.00-10.9); Hematocrit 27.6 VOL% (35.7-47.0); Hemoglobin 8.6 GM/DL (12.0-16.0); Immature Granulocytes % 1.4 %; Immature Granulocytes Absolute 0.17 #; Lymphocytes # 1.5 10*3/uL (1.4-4.0); Lymphocytes % 12.8 % (21.3-54.2); Mean Corpuscular HGB Conc 31.2 GM/DL (32-36); Mean Corpuscular Volume 89.6 FL (87-102); Mean Platelet Volume 9.6 FL (9.6-12.0); Monocytes % 7.6 % (1.7-12.7); Neutrophils % 71.4 % (38.7-73.9); Platelet Count 430 T/CUMM (130-400); Red Blood Count 3.08 MC/CUMM (3.8-5.5); Red Cell Distribution Width 13.8 % (9.3-17.3)
[2020-09-17 06:16] LABS: Calcium 8.2 MG/DL (8.5-10.1); Osmolality,Calculated 280.1 MOS/KG (273-304)
[2020-09-17] MEDS: AMIODARONE INJ 450 MG in DEXTROSE 5% 241 ML IV SCH (06:16)
[2020-09-17] MEDS: INSULIN LISPRO 100 UNIT/ML SUBCUT SCH ×2 (08:00→12:32)
[2020-09-17] MEDS ORDERED: AMIODARONE 200 MG TABLET PO SCH (09:06)
[2020-09-17] MEDS: ASPIRIN EC 325 MG TABLET PO SCH (09:39)
[2020-09-17] MEDS: APIXABAN 5 MG TABLET PO SCH (09:40)
[2020-09-17] MEDS: INSULIN NPH/REGULAR 70/30 100 UNIT/ML SUBCUT SCH (09:40)
[2020-09-17] MEDS: DILTIAZEM CD 120 MG CAPSULE PO SCH (09:40)
[2020-09-17] MEDS: carvediloL 6.25 MG TABLET PO SCH (09:40)
[2020-09-17] MEDS: DOCUSATE SODIUM 100 MG CAPSULE PO SCH (09:40)
[2020-09-17] MEDS: FERROUS SULFATE 325 MG TABLET PO SCH (09:40)
[2020-09-17] MEDS: PANTOPRAZOLE 40 MG TABLET PO SCH (09:40)
[2020-09-17] MEDS: CHLORHEXIDINE 0.12% ORAL RINSE 60 ML BOTTLE SWISH/SPIT SCH (09:41)
[2020-09-17] MEDS: POLYETHYLENE GLYCOL POWDER 17 GM PACK PO SCH (09:41)
[2020-09-17] MEDS: ASCORBIC ACID 500 MG TABLET PO SCH (11:14)
[2020-09-17 11:28] VITALS: BP 144/72
[2020-09-17] MEDS: INSULIN GLARGINE 100 UNIT/ML SUBCUT SCH (12:31)
[2020-09-25] MEDS ORDERED: AMIODARONE 200 MG TABLET PO SCH (09:00)
== END 2020-09-17 14:30 | disposition home health service (06) | DRG 235 ==
LOC: N.ICU 14:33 → N.TELEN 09-07 10:59 → N.CVR 09-09 10:16 → N.ICU 09-10 07:06 → N.TELES 09-10 13:36